=== PATIENT | female | born 1975 ===

== ENCOUNTER 2017-12-27 00:44 | Emergency (ER) | payer SELFPAY ==
--- NOTE | 2017-12-27 02:07 | ED PDOC ---
HPI: Psych/Substance Abuse Time Seen by Provider: 12/27/17 01:08 Chief Complaint (Nursing): Psychiatric Evaluation Chief Complaint (Provider): Psychiatric Evaluation ED Caveat: Intoxicated History Per: EMS, Other (Retirement) History/Exam Limitations: intoxication Onset/Duration Of Symptoms: Days Current Symptoms Are (Timing): Still Present Suicide/Self Injury Attempted (Context): None Modifying Factor(s): Alcohol Associated Symptoms: Depression Involuntary Hold By: None Additional History Per: Retirement Additional Complaint(s): According to Nursing staff and EMS, patient's recently cheated on her causing her to become depressed and suicidal. As per EMS, patient drank a bottle of tequila prior to arrival. Unable to obtain history from patient due to intoxicated state. PMD: None Provided Past Medical History Reviewed: Historical Data, Nursing Documentation, Vital Signs Vital Signs: Last Vital Signs Temp 98.0 F 12/27/17 00:49 Pulse 92 H 12/27/17 00:49 Resp 18 12/27/17 00:49 BP 122/69 12/27/17 00:49 Pulse Ox 100 12/27/17 00:49 - Medical History PMH: No Chronic Diseases - Surgical History Surgical History: - Family History Family History: States: Diabetes (Mother) - Home Medications Home Medications: Ambulatory Orders Medication Instructions Recorded Atropine/Diphenoxylate [Lonox 2 tab PO QID PRN #30 tab 04/14/16 0.025 MG-2.5 MG] Ciprofloxacin HCl [Cipro] 500 mg PO BID #20 tab 04/14/16 Saccharomyces Boulardi [Florastor] 500 mg PO BID #28 cap 04/14/16 metroNIDAZOLE [Flagyl] 500 mg PO TID #30 tab 04/14/16 - Allergies Allergies/Adverse Reactions: Allergies Allergy/AdvReac Type Severity Reaction Status Date / Time No Known Allergies Allergy Verified 04/14/16 15:49 Review of Systems Review Of Systems: ROS cannot be obtained secondary to pt's inabilty to answer questions. Physical Exam - Reviewed Nursing Documentation Reviewed: Yes Vital Signs Reviewed: Yes - Physical Exam Appears: Negative for: Well (Intoxicated appearing) Head Exam: Positive for: ATRAUMATIC, NORMOCEPHALIC Skin: Positive for: Normal Color, Warm, Dry Neck: Positive for: Normal, Painless ROM Cardiovascular/Chest: Positive for: Regular Rate, Rhythm. Negative for: Murmur Respiratory: Positive for: Normal Breath Sounds. Negative for: Respiratory Distress Gastrointestinal/Abdominal: Positive for: Normal Exam, Soft. Negative for: T enderness Extremity: Positive for: Normal ROM. Negative for: Pedal Edema, Deformity Neurologic/Psych: Positive for: Other (Arousable to tactile stimuli). Negative for: Alert, Oriented - ECG O2 Sat by Pulse Oximetry: 100 (RA) Pulse Ox Interpretation: Normal Medical Decision Making Medical Decision Making: Time: 144 A/P: 42 y/o female presenting with alcohol intoxication, depression and suicidal ideation -- Alcohol Serum ordered [address] Hector pending crisis eval and clinical sobriety Scribe Attestation: Documented by Norberto Lynn, acting as a scribe for Fred Feldman MD. Provider Scribe Attestation: All medical record entries made by the Scribe were at my direction and personally dictated by me. I have reviewed the chart and agree that the record accurately reflects my personal performance of the history, physical exam, medical decision making, and the department course for this patient. I have also personally directed, reviewed, and agree with the discharge instructions and disposition. Disposition - Clinical Impression Clinical Impression: Alcohol abuse - Patient ED Disposition Is Patient to be Admitted: Transfer of Care - Disposition Disposition: Transfer of Care Disposition Time: 07:00 Condition: STABLE Forms: [employer] (Chilean) Patient Signed Over To: Dagoberto Hector Handoff Comments: pending sobriety
--- NOTE | 2017-12-27 07:53 | ED PDOC ---
- ECG O2 Sat by Pulse Oximetry: 100 (RA) Pulse Ox Interpretation: Normal - Progress Re-evaluation Time: 08:16 Condition: Improved (Awake alert orientedx3. Denies SI/HI) Medical Decision Making Medical Decision Making: Time: 0700 Patient endorsed to me by Dr. Feldman pending crisis evaluation and clinical sobriety. Scribe Attestation: Documented by Will Yost, acting as a scribe for Dagoberto Hector MD Provider Scribe Attestation: All medical record entries made by the Scribe were at my direction and personally dictated by me. I have reviewed the chart and agree that the record accurately reflects my personal performance of the history, physical exam, medical decision making, and the department course for this patient. I have also personally directed, reviewed, and agree with the discharge instructions and disposition. Disposition - Clinical Impression Clinical Impression: Alcohol abuse - POA Present On Arrival: None - Disposition Disposition: Routine/Home Disposition Time: 08:16 Condition: STABLE Instructions: Alcohol Abuse and Alcoholism (DC) Forms: [employer] (Maori)
[2017-12-27 08:32] VITALS: BP 112/65; PULSE 74; RESP 17; TEMP 97.9; O2SAT 99
== END 2017-12-27 08:30 | disposition home or self-care (01) ==
LOC: H.ER 00:44
DX: F10.129 Alcohol abuse with intoxication, unspecified (principal); Y90.7 Blood alcohol level of 200-239 mg/100 ml; F32.9 Major depressive disorder, single episode, unspecified; R45.851 Suicidal ideations
CPT/HCPCS: 82948; 99283; G0480